=== PATIENT | male | born 1995 ===

== ENCOUNTER 2022-12-06 20:44 | Emergency (ER) | payer OTHER ==
[~2022-12-06] VITALS: Ht 175.3 cm; Wt 61.0 kg
[2022-12-06 20:52] VITALS: BP 153/90
[2022-12-06] MEDS ORDERED: DOXY100 PO (21:10)
== END 2022-12-06 21:40 | disposition home or self-care (01) ==
LOC: ER 20:44
DX: L02.229 Furuncle of trunk, unspecified (principal)
CPT/HCPCS: 99282; A9270

== ENCOUNTER 2023-07-20 14:49 | Emergency (ER) | payer OTHER ==
[~2023-07-20] VITALS: Ht 170.2 cm; Wt 82.5 kg
[~2023-07-20 14:49] MED LIST: DOXY100 PO; HYDHCL25 PO
[2023-07-20 15:07] VITALS: BP 139/76
== END 2023-07-20 16:04 | disposition home or self-care (01) ==
LOC: ER 14:49
DX: S46.211A Strain of muscle, fascia and tendon of other parts of biceps, right arm, initial encounter (principal); S46.212A Strain of muscle, fascia and tendon of other parts of biceps, left arm, initial encounter; X50.0XXA Overexertion from strenuous movement or load, initial encounter; Y93.B3 Activity, free weights; Z88.2 Allergy status to sulfonamides
CPT/HCPCS: 99283